=== PATIENT | male | born 1930 ===

== ENCOUNTER 2019-10-12 11:49 | Day surgery (SDC) | payer OTHER ==
[~2019-10-12] VITALS: Ht 182.9 cm; Wt 56.7 kg
[~2019-10-12 11:49] MED LIST: ALBU90OI PO; ATOR20 PO; Aspirin EC81 MG PO; BUDE10.22 PO; CIPR500 PO; OMEP20ER PO; QUET25 PO; TAMS.4ER PO; TIOT18 INH
== END 2019-10-12 14:43 | disposition home or self-care (01) ==
LOC: ORSCSDS 11:49
PROVIDERS: Internal Medicine Gastroenterology
PROC: 0DJD8ZZ Inspection of Lower Intestinal Tract, Via Natural or Artificial Opening Endoscopic (ICD-10-PCS; principal; 2019-10-12 13:30)
PROC: 0DB68ZX Excision of Stomach, Via Natural or Artificial Opening Endoscopic, Diagnostic (ICD-10-PCS; principal; 2019-10-12 13:30)
DX: R10.9 Unspecified abdominal pain (principal); Z85.038 Personal history of other malignant neoplasm of large intestine; K30 Functional dyspepsia; K20.9 Esophagitis, unspecified; K57.30 Diverticulosis of large intestine without perforation or abscess without bleeding; Z87.891 Personal history of nicotine dependence; Z79.899 Other long term (current) drug therapy; Z79.82 Long term (current) use of aspirin
CPT/HCPCS: 88305; 88342; J2704; J7120

== ENCOUNTER 2020-07-04 11:45 | Day surgery (SDC) | payer OTHER ==
[~2020-07-04] VITALS: Ht 182.9 cm; Wt 58.0 kg
[~2020-07-04 11:45] MED LIST changes: +METO10SY PO; +METO5A PO
[2020-07-04] MEDS ORDERED: FINA5 (12:00)
[2020-07-04] MEDS ORDERED: DILT180 (12:00)
[2020-07-04] MEDS ORDERED: PANT40 (12:01)
--- NOTE | 2020-07-04 13:31 | NUR ---
07/04/20 1331 Caitlyn Maravilla CASE DELAYED DUE TO DR HENNING ORDERING PT ORAL BP MEDICATIONS. CASES WENT OUT OF ORDER.
--- NOTE | 2020-07-04 13:53 | NUR ---
07/04/20 1353 Pauline Celis BUPIVICANE 0.5% 1:200,000 & LIDOCAINE 2% 1:100,000 USED FOR PRE SX INJECTION BY DR. HEATON. TOTAL OF 7 MLS INJECTED.
== END 2020-07-04 14:40 | disposition home or self-care (01) ==
LOC: ORSCSDS 11:45
PROVIDERS: Ophthalmology
PROC: 08SQ0ZZ Reposition Right Lower Eyelid, Open Approach (ICD-10-PCS; principal; 2020-07-04 13:00)
PROC: 08SR0ZZ Reposition Left Lower Eyelid, Open Approach (ICD-10-PCS; principal; 2020-07-04 13:00)
DX: H02.135 Senile ectropion of left lower eyelid (principal); H02.132 Senile ectropion of right lower eyelid; H16.213 Exposure keratoconjunctivitis, bilateral; I10 Essential (primary) hypertension; Z79.82 Long term (current) use of aspirin; Z79.899 Other long term (current) drug therapy
CPT/HCPCS: A9270-GY; J0171